=== PATIENT | female | born 1935 | race Caucasian/White ===

== ENCOUNTER 2019-07-04 10:21 | Emergency (ER) | payer MEDICARE ==
[2019-07-04] MEDS: cloNIDine 0.1 MG Tab PO ONE (10:37)
[2019-07-04] MEDS: cloNIDine 0.1 MG Tab ONE (10:42)
--- NOTE | 2019-07-04 10:55 | EDM.PDOC ---
ED HPI GENERAL MEDICAL PROBLEM - General Chief Complaint: General Stated Complaint: FALL AT HOME Time Seen by Provider: 07/04/19 10:30 Source of Information: Reports: Patient History Limitations: Reports: No Limitations - History of Present Illness INITIAL COMMENTS - FREE TEXT/NARRATIVE: According to patient she was taking her coat off last evening and got entangled and fell and landed on her right shoulder. Since then she cannot move her right arm. Hurts all around the shoulder. No swelling or bruising around the shoulder.rates her pain at 8/10. No other injuries. Pt is on 4 blood pressure meds, and she has not taken them today mooning. Her BP is 210/90mmhg. Onset Date: 07/03/19 Location: Reports: Upper Extremity, Right Quality: Reports: Ache Severity: Moderate Improves with: Reports: None Worsens with: Reports: None Associated Symptoms: Denies: Confusion, Chest Pain, Cough, Diaphoresis, Fever/ Chills, Headaches, Nausea/Vomiting, Rash, Seizure, Shortness of Breath, Syncope , Weakness Right Posterior Shoulder Pain Score (Numeric/FACES): 8 - Related Data Allergies Allergy/AdvReac Type Severity Reaction Status Date / Time No Known Allergies Allergy Verified 07/04/19 10:52 Home Meds: Home Meds Diltiazem HCl [Dilt-XR] 120 mg PO DAILY 07/04/19 [History] Losartan [Cozaar] 50 mg PO DAILY 07/04/19 [History] Metoprolol Tartrate 50 mg PO BID 07/04/19 [History] hydroCHLOROthiazide [Hydrochlorothiazide] 25 mg PO BID 07/04/19 [History] ED ROS GENERAL - Review of Systems Review Of Systems: See Below Constitutional: Denies: Fever, Chills HEENT: Denies: Ear Pain, Rhinitis, Throat Pain, Vision Change Respiratory: Denies: Cough, Sputum Cardiovascular: Denies: Chest Pain, Lightheadedness Endocrine: Denies: Fatigue GI/Abdominal: Denies: Abdominal Pain, Constipation, Diarrhea, Nausea, Vomiting Musculoskeletal: Reports: Joint Pain, Muscle Pain. Denies: Joint Swelling, Muscle Stiffness Skin: Denies: Bruising, Pruritis, Rash, Wound Neurological: Denies: Confusion, Dizziness, Headache, Numbness, Tingling ED EXAM, GENERAL - Physical Exam Exam: See Below Exam Limited By: No Limitations General Appearance: Alert, WD/WN, No Apparent Distress Eye Exam: Bilateral Eye: EOMI, PERRL Ears: Normal External Exam, Normal Canal, Hearing Grossly Normal, Normal TMs Ear Exam: Bilateral Ear: Auricle Normal, Canal Normal, TM normal Nose: Normal Inspection, Normal Mucosa, No Blood Throat/Mouth: Normal Inspection, Normal Lips, Normal Teeth, Normal Gums, Normal Oropharynx, Normal Voice, No Airway Compromise Head: Atraumatic, Normocephalic Neck: Normal Inspection, Supple, Non-Tender, Full Range of Motion Respiratory/Chest: No Respiratory Distress, Lungs Clear, Normal Breath Sounds, No Accessory Muscle Use, Chest Non-Tender Cardiovascular: Normal Peripheral Pulses, Regular Rate, Rhythm, No Edema, No Gallop, No JVD, No Murmur, No Rub Extremities: Normal Inspection, Normal Capillary Refill, Other (Right Shoulder: There is no swelling , bruising or defomrity noted around the shoulder. Painful and limited ROM.Tender over the distal clavicle. No crepitus felt in the humerus or around the shoulder joint.) Neurological: Alert, Oriented Skin Exam: Warm, Intact Course - Vital Signs Text/Narrative:: Pt's X-ray right shoulder appear normal other then the distal clavicular fracture undisplaced.Pt reassured that she has undisplaced fracture of the clavicle from the fall. Pt has been placed in Arm sling. Advised sling for 6 wks. Tylenol 500mg 3 times daily for pain as needed. Her BP on arrival was 210/94mmhg, she did take her meds and also clonidine 0.1mg was given in the emergency room. Her Blood pressure is now 154/79mmhg. Pt feeling better. Followup in clinic in 2 wks for recheck. Last Recorded V/S: Last Vital Signs Temp 98.0 F 07/04/19 10:53 Pulse 69 07/04/19 10:53 Resp 16 07/04/19 10:53 BP 220/98 H 07/04/19 10:53 Pulse Ox 100 07/04/19 10:53 - Orders/Labs/Meds Orders: Active Orders 24 hr Category Date Time Status Shoulder Comp Rt [CR] Stat Exams 07/04/19 10:47 Ordered Meds: Medications Discontinued Medications Generic Name Dose Route Start Last Admin Trade Name Freq PRN Reason Stop Dose Admin Clonidine HCl 0.1 mg 10/16/19 10:37 07/04/19 10:37 Catapres PO 07/04/19 10:38 0.1 mg ONETIME ONE Administration Clonidine HCl Confirm 07/04/19 10:45 07/04/19 10:42 Catapres Administered 07/04/19 10:46 Not Given Dose 0.1 mg .ROUTE .STK-MED ONE Departure - Departure Time of Disposition: 11:45 Disposition: Home, Self-Care 01 Condition: Fair Clinical Impression: Clavicle fracture - Discharge Information *PRESCRIPTION DRUG MONITORING PROGRAM REVIEWED*: Not Applicable *COPY OF PRESCRIPTION DRUG MONITORING REPORT IN PATIENT CHELSEY: Not Applicable Referrals: PCP,None [Primary Care Provider] - Forms: ED Department Discharge - Problem List & Annotations (1) Clavicle fracture SNOMED Code(s): 97526155 Code(s): S42.009A - FRACTURE OF UNSP PART OF UNSP CLAVICLE, INIT FOR CLOS FX Status: Acute Current Visit: Yes - Problem List Review Problem List Initiated/Reviewed/Updated: Yes - My Orders Last 24 Hours: My Active Orders 07/04/19 10:47 Shoulder Comp Rt [CR] Stat - Assessment/Plan Last 24 Hours: My Active Orders 07/04/19 10:47 Shoulder Comp Rt [CR] Stat Assessment:: Left clavicular fracture Plan: Pt's X-ray right shoulder appear normal other then the distal clavicular fracture undisplaced.Pt reassured that she has undisplaced fracture of the clavicle from the fall. Pt has been placed in Arm sling. Advised sling for 6 wks. Tylenol 500mg 3 times daily for pain as needed. Her BP on arrival was 210/94mmhg, she did take her meds and also clonidine 0.1mg was given in the emergency room. Her Blood pressure is now 154/79mmhg. Pt feeling better. Followup in clinic in 2 wks for recheck.
[2019-07-04 13:48] VITALS: BP 154/79; PULSE 55
--- NOTE | 2019-07-04 15:52 | CR ---
Date of Service: 07/04/19 Clinical Data: right shoulder pain RIGHT SHOULDER: There is diffuse osteopenia. There is a mildly displaced oblique fracture through the distal clavicle. No other fractures. 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 No focal lytic or blastic bone lesions. IMPRESSION: Fracture distal clavicle. [id number] [facility]
== END 2019-07-04 12:05 | disposition home or self-care (01) ==
LOC: LB.ED 10:21
DX: S42.031A Displaced fracture of lateral end of right clavicle, initial encounter for closed fracture (principal); Z79.899 Other long term (current) drug therapy; W18.30XA Fall on same level, unspecified, initial encounter; Y92.009 Unspecified place in unspecified non-institutional (private) residence as the place of occurrence of the external cause
CPT/HCPCS: 73030-RT; 99283-25; A9270-GY

== ENCOUNTER 2019-07-18 08:44 | Observation (INO) | payer MEDICARE, OTHER ==
[2019-07-18] MEDS: Acetaminophen 500 MG Tab PO PRN ×3 (10:45→23:29)
--- NOTE | 2019-07-18 11:49 | PCM.HP.2 ---
H&P History of Present Illness - General Date of Service: 07/18/19 Admit Problem/Dx: Admission Diagnosis/Problem Admission Diagnosis/Problem Fracture of phalanx of multiple toes Source of Information: Patient History Limitations: Reports: No Limitations - History of Present Illness Initial Comments - Free Text/Narative: This is a 84yo F admitted to observation from clinic for a fracture of the distal right clavicle on Jul 04 and new recent fall and fracture of the right distal 2-5 metatarsals. She is unable to care for herself and a fall risk. Onset of Symptoms: Reports: Sudden Duration of Symptoms: Reports: Day(s): Location: Reports: Upper Extremity, Right, Lower Extremity, Right Severity: Moderate Improves with: Reports: None Worsens with: Reports: Movement Associated Symptoms: Reports: Weakness - Related Data Allergies/Adverse Reactions: Allergies Allergy/AdvReac Type Severity Reaction Status Date / Time No Known Allergies Allergy Verified 07/18/19 11:32 Home Medications: Home Meds Diltiazem HCl [Dilt-XR] 120 mg PO DAILY 07/04/19 [History] Losartan [Cozaar] 50 mg PO BID 07/04/19 [History] Metoprolol Tartrate 50 mg PO BID 07/04/19 [History] hydroCHLOROthiazide [Hydrochlorothiazide] 25 mg PO BID 07/04/19 [History] Past Medical History HEENT History: Reports: Cataract, Other (See Below) Cardiovascular History: Reports: High Cholesterol, Hypertension Gastrointestinal History: Reports: Other (See Below) Other Gastrointestinal History: Hx of neurofibromatosis [employer] History: Reports: Neurological History: Reports: None Dermatologic History: Reports: Other (See Below) Other Dermatologic History: Hx of neurofibromatosis - Infectious Disease History Infectious Disease History: Reports: Chicken Pox, Measles, Mumps, Scarlet Fever - Past Surgical History HEENT Surgical History: Reports: Cataract Surgery GI Surgical History: Reports: Other (See Below) Other GI Surgeries/Procedures: Removal of some parts of the colon more than 20 years ago due to presence of tumor Female Surgical History: Reports: Section, Hysterectomy H&P Review of Systems - Review of Systems: Review Of Systems: ROS reveals no pertinent complaints other than HPI. Exam - Exam Exam: See Below - Exam General: Alert, Oriented, Cooperative HEENT: PERRLA, Conjunctiva Clear, EACs Clear Neck: Supple, Trachea Midline Lungs: Clear to Auscultation, Normal Respiratory Effort Cardiovascular: Regular Rate, Regular Rhythm GI/Abdominal Exam: Normal Bowel Sounds, Soft, Non-Tender Back Exam: Normal Inspection Extremities: Pedal Edema, Joint Swelling Peripheral Pulses: 2+: Dorsalis Pedis (L), Dorsalis Pedis (R) Skin: Warm, Dry, Intact Neuro Extensive - Mental Status: Alert, Oriented x3, Normal Mood/Affect - Problem List (1) Fracture of fifth metatarsal bone of right foot SNOMED Code(s): 530736511 ICD Code: S92.351A - DISP FX OF FIFTH METATARSAL BONE, RIGHT FOOT, INIT Status: Acute Current Visit: Yes Qualifiers: Encounter type: initial encounter Fracture type: closed Fracture alignment: nondisplaced Qualified Code(s): S92.354A - Nondisplaced fracture of fifth metatarsal bone, right foot, initial encounter for closed fracture (2) Fracture of fourth metatarsal bone of right foot SNOMED Code(s): 702225621 ICD Code: S92.341A - DISP FX OF FOURTH METATARSAL BONE, RIGHT FOOT, INIT Status: Acute Priority: High Current Visit: Yes Qualifiers: Encounter type: initial encounter Fracture type: closed Fracture alignment: nondisplaced Qualified Code(s): S92.344A - Nondisplaced fracture of fourth metatarsal bone, right foot, initial encounter for closed fracture (3) Fracture of second metatarsal bone of right foot SNOMED Code(s): 935805954 ICD Code: S92.321A - DISP FX OF SECOND METATARSAL BONE, RIGHT FOOT, INIT Status: Acute Priority: High Current Visit: Yes Qualifiers: Encounter type: initial encounter Fracture type: closed Fracture alignment: nondisplaced Qualified Code(s): S92.324A - Nondisplaced fracture of second metatarsal bone, right foot, initial encounter for closed fracture (4) Fracture of third metatarsal bone of right foot SNOMED Code(s): 081371084 ICD Code: S92.331A - DISP FX OF THIRD METATARSAL BONE, RIGHT FOOT, INIT Status: Acute Priority: High Current Visit: Yes Qualifiers: Encounter type: initial encounter Fracture type: closed Fracture alignment: nondisplaced Qualified Code(s): S92.334A - Nondisplaced fracture of third metatarsal bone, right foot, initial encounter for closed fracture (5) Clavicle fracture SNOMED Code(s): 58124741 ICD Code: S42.009A - FRACTURE OF UNSP PART OF UNSP CLAVICLE, INIT FOR CLOS FX Status: Acute Priority: High Current Visit: Yes Qualifiers: Encounter type: subsequent encounter Clavicle location: shaft Fracture type: closed Fracture alignment: displaced Laterality: right Problem List Initiated/Reviewed/Updated: Yes Orders Last 24hrs: Active Orders 24 hr Category Date Time Status Patient Status [ADT] Routine ADT 07/18/19 10:29 Active Up With Assistance [RC] ASDIRECTED Care 07/18/19 10:40 Active Vital Signs [RC] Q4H Care 07/18/19 10:40 Active OT Evaluation and Treatment [CONS] Routine Cons 07/18/19 10:35 Active PT Evaluation and Treatment [CONS] Routine Cons 07/18/19 10:34 Active Regular Diet [DIET] Diet 07/18/19 Lunch Ordered Foot 2V Rt [CR] Routine Exams 07/18/19 Taken Assessment/Plan Comment:: Patient to be placed in observation for pain management, monitoring and care of weakness and fall risk. PT/OT ordered.
[2019-07-18] MEDS: cloNIDine 0.1 MG Tab PO SCH ×2 (13:00→19:49)
--- NOTE | 2019-07-18 14:49 | CR ---
Date of Service: 07/18/19 Clinical Data: Pain in right foot RIGHT FOOT: There are mild displaced fractures through the distal diaphyses of the second, third, fourth, and fifth metatarsals with lateral angulation and displacement of the distal distal fragments. No other acute abnormalities. There is marked bunion deformity of the MP joint of the first toe. There are osteoarthritric changes involving multiple joints. [id number] MTDD
[2019-07-18] MEDS: Losartan 50 MG Tab PO SCH (19:42)
[2019-07-18] MEDS: Metoprolol Tartrate 50 MG Tab PO SCH (19:43)
[2019-07-18] MEDS ORDERED: Hydrochlorothiazide 25 MG Tab PO SCH (20:00)
[2019-07-18] MEDS ORDERED: Losartan 50 MG Tab PO SCH (20:00)
[2019-07-18] MEDS ORDERED: Metoprolol Tartrate 50 MG Tab PO SCH (20:00)
[2019-07-19] MEDS: traMADol 50 MG Tab PO PRN ×2 (05:26→21:05)
[2019-07-19] MEDS: Diltiazem 120 MG Cap.CD PO SCH (07:35)
[2019-07-19] MEDS: Hydrochlorothiazide 25 MG Tab PO SCH (07:35)
[2019-07-19] MEDS: Losartan 50 MG Tab PO SCH ×2 (07:38→19:44)
[2019-07-19] MEDS: cloNIDine 0.1 MG Tab PO SCH ×2 (07:38→19:43)
[2019-07-19] MEDS: Acetaminophen 500 MG Tab PO PRN ×2 (07:42→19:44)
[2019-07-19] MEDS ORDERED: Non-Formulary Medication 1 Each (Diltiazem Hcl [Dilt-Xr] 120 MG) PO SCH (08:00)
[2019-07-19] MEDS: Metoprolol Tartrate 25 MG Tab PO SCH ×2 (09:00→19:43)
--- NOTE | 2019-07-19 11:52 | PCM.PN ---
- General Info Date of Service: 07/19/19 (]) Functional Status: Reports: Pain Controlled, Tolerating Diet - Review of Systems General: Reports: Weakness HEENT: Reports: No Symptoms Pulmonary: Reports: No Symptoms Cardiovascular: Reports: No Symptoms Gastrointestinal: Reports: No Symptoms Genitourinary: Reports: No Symptoms Musculoskeletal: Reports: Shoulder Pain, Arm Pain, Foot Pain, Joint Pain Skin: Reports: No Symptoms Neurological: Reports: No Symptoms - Patient Data Vitals - Most Recent: Last Vital Signs Temp 36.2 C 07/19/19 07:40 Pulse 52 L 07/19/19 07:40 Resp 18 07/19/19 07:40 BP 182/75 H 07/19/19 07:40 Pulse Ox 96 07/19/19 07:40 Weight - Most Recent: 63.957 kg Med Orders - Current: Current Medications Acetaminophen (Tylenol Extra Strength) 1,000 mg PO Q6H PRN PRN Reason: MILD PAIN Last Admin: 07/19/19 07:42 Dose: 1,000 mg Clonidine HCl (Catapres) 0.1 mg PO BID [facility] Last Admin: 07/19/19 07:38 Dose: 0.1 mg Diltiazem HCl (Cardizem Cd) 120 mg PO DAILY [facility] Last Admin: 07/19/19 07:35 Dose: 120 mg Hydrochlorothiazide (Hydrochlorothiazide) 25 mg PO DAILY [facility] Last Admin: 07/19/19 07:35 Dose: 25 mg Losartan Potassium (Cozaar) 50 mg PO BID [facility] Last Admin: 07/19/19 07:38 Dose: 50 mg Metoprolol Tartrate (Lopressor) 25 mg PO BID [facility] Tramadol HCl (Ultram) 25 mg PO Q4H PRN PRN Reason: Pain Last Admin: 07/19/19 05:26 Dose: 25 mg Discontinued Medications Metoprolol Tartrate (Lopressor) 100 mg PO BID [facility] Last Admin: 07/18/19 19:43 Dose: 100 mg - Exam General: Alert, Oriented, Cooperative HEENT: Pupils Equal, Pupils Reactive, EOMI Neck: Supple Lungs: Clear to Auscultation, Normal Respiratory Effort Cardiovascular: Regular Rate, Regular Rhythm GI/Abdominal Exam: Normal Bowel Sounds Back Exam: Normal Inspection Extremities: Other (foot pain and tenderness, clavicle tenderness - both on right) Peripheral Pulses: 2+: Dorsalis Pedis (L), Dorsalis Pedis (R) Skin: Warm, Dry, Intact Neurological: No New Focal Deficit Psy/Mental Status: Alert, Normal Affect, Normal Mood - Problem List & Annotations (1) Fracture of fifth metatarsal bone of right foot SNOMED Code(s): 721750944 Code(s): S92.351A - DISP FX OF FIFTH METATARSAL BONE, RIGHT FOOT, INIT Status: Acute Current Visit: Yes Qualifiers: Encounter type: initial encounter Fracture type: closed Fracture alignment: nondisplaced Qualified Code(s): S92.354A - Nondisplaced fracture of fifth metatarsal bone, right foot, initial encounter for closed fracture (2) Fracture of fourth metatarsal bone of right foot SNOMED Code(s): 156583559 Code(s): S92.341A - DISP FX OF FOURTH METATARSAL BONE, RIGHT FOOT, INIT Status: Acute Priority: High Current Visit: Yes Qualifiers: Encounter type: initial encounter Fracture type: closed Fracture alignment: nondisplaced Qualified Code(s): S92.344A - Nondisplaced fracture of fourth metatarsal bone, right foot, initial encounter for closed fracture (3) Fracture of second metatarsal bone of right foot SNOMED Code(s): 616801938 Code(s): S92.321A - DISP FX OF SECOND METATARSAL BONE, RIGHT FOOT, INIT Status: Acute Priority: High Current Visit: Yes Qualifiers: Encounter type: initial encounter Fracture type: closed Fracture alignment: nondisplaced Qualified Code(s): S92.324A - Nondisplaced fracture of second metatarsal bone, right foot, initial encounter for closed fracture (4) Fracture of third metatarsal bone of right foot SNOMED Code(s): 239068396 Code(s): S92.331A - DISP FX OF THIRD METATARSAL BONE, RIGHT FOOT, INIT Status: Acute Priority: High Current Visit: Yes Qualifiers: Encounter type: initial encounter Fracture type: closed Fracture alignment: nondisplaced Qualified Code(s): S92.334A - Nondisplaced fracture of third metatarsal bone, right foot, initial encounter for closed fracture (5) Clavicle fracture SNOMED Code(s): 63759576 Code(s): S42.009A - FRACTURE OF UNSP PART OF UNSP CLAVICLE, INIT FOR CLOS FX Status: Acute Priority: High Current Visit: Yes Qualifiers: Encounter type: subsequent encounter Clavicle location: shaft Fracture type: closed Fracture alignment: displaced Laterality: right - Problem List Review Problem List Initiated/Reviewed/Updated: Yes - My Orders Last 24 Hours: My Active Orders 07/18/19 12:15 cloNIDine [Catapres] 0.1 mg PO BID 07/18/19 17:01 CULTURE MRSA SURVEY [RM] Routine 07/18/19 17:14 Acetaminophen [Tylenol Extra Strength] 1,000 mg PO Q6H PRN 07/18/19 19:01 Weight bearing status [OM.PC] Routine 07/18/19 20:00 Losartan [Cozaar] 50 mg PO BID 07/18/19 Lunch Regular Diet [DIET] 07/19/19 05:00 traMADol [Ultram] 25 mg PO Q4H PRN 07/19/19 08:00 Diltiazem [Cardizem CD] 120 mg PO DAILY hydroCHLOROthiazide 25 mg PO DAILY 07/19/19 08:15 Metoprolol Tartrate [Lopressor] 25 mg PO BID - Plan Plan:: Patient to be placed in observation for pain management, monitoring and care of weakness and fall risk. PT/OT ordered. 07/19/19 Patient doing well and will start with some PT/OT evaluation and management.
[2019-07-19] MEDS: Metoprolol Tartrate 50 MG Tab PO SCH (18:48)
[2019-07-20] MEDS: Acetaminophen 500 MG Tab PO PRN (04:31)
[2019-07-20 04:44] VITALS: PULSE 52
[2019-07-20] MEDS: Metoprolol Tartrate 25 MG Tab PO SCH (07:42)
[2019-07-20] MEDS: Diltiazem 120 MG Cap.CD PO SCH (07:43)
[2019-07-20] MEDS: Losartan 50 MG Tab PO SCH (07:43)
[2019-07-20] MEDS: Hydrochlorothiazide 25 MG Tab PO SCH (07:43)
[2019-07-20 07:44] VITALS: BP 159/70
[2019-07-20] MEDS: cloNIDine 0.1 MG Tab PO SCH (07:44)
--- NOTE | 2019-07-20 11:46 | PCM.DCSUM1 ---
Discharge Summary - Discharge Data Discharge Date: 07/20/19 Discharge Disposition: DC/[facility] to [facility] Condition: Good - Referral to Home Health Primary Care Physician: PCP None - Discharge Diagnosis/Problem(s) (1) Fracture of fifth metatarsal bone of right foot SNOMED Code(s): 606841731 ICD Code: S92.351A - DISP FX OF FIFTH METATARSAL BONE, RIGHT FOOT, INIT Status: Acute Current Visit: Yes Qualifiers: Encounter type: initial encounter Fracture type: closed Fracture alignment: nondisplaced Qualified Code(s): S92.354A - Nondisplaced fracture of fifth metatarsal bone, right foot, initial encounter for closed fracture (2) Fracture of fourth metatarsal bone of right foot SNOMED Code(s): 052854672 ICD Code: S92.341A - DISP FX OF FOURTH METATARSAL BONE, RIGHT FOOT, INIT Status: Acute Priority: High Current Visit: Yes Qualifiers: Encounter type: initial encounter Fracture type: closed Fracture alignment: nondisplaced Qualified Code(s): S92.344A - Nondisplaced fracture of fourth metatarsal bone, right foot, initial encounter for closed fracture (3) Fracture of second metatarsal bone of right foot SNOMED Code(s): 563198571 ICD Code: S92.321A - DISP FX OF SECOND METATARSAL BONE, RIGHT FOOT, INIT Status: Acute Priority: High Current Visit: Yes Qualifiers: Encounter type: initial encounter Fracture type: closed Fracture alignment: nondisplaced Qualified Code(s): S92.324A - Nondisplaced fracture of second metatarsal bone, right foot, initial encounter for closed fracture (4) Fracture of third metatarsal bone of right foot SNOMED Code(s): 821601889 ICD Code: S92.331A - DISP FX OF THIRD METATARSAL BONE, RIGHT FOOT, INIT Status: Acute Priority: High Current Visit: Yes Qualifiers: Encounter type: initial encounter Fracture type: closed Fracture alignment: nondisplaced Qualified Code(s): S92.334A - Nondisplaced fracture of third metatarsal bone, right foot, initial encounter for closed fracture (5) Clavicle fracture SNOMED Code(s): 75032328 ICD Code: S42.009A - FRACTURE OF UNSP PART OF UNSP CLAVICLE, INIT FOR CLOS FX Status: Acute Priority: High Current Visit: Yes Qualifiers: Encounter type: subsequent encounter Clavicle location: shaft Fracture type: closed Fracture alignment: displaced Laterality: right - Patient Summary/Data Consults: Consultations 07/18/19 10:34 PT Evaluation and Treatment [CONS] Routine Please Evaluate and Treat. PT Reason for Consult: Ambulation This query below is only for informational purposes and is not editable. Admission Diagnosis/Problem: Fracture of phalanx of multiple toes 07/18/19 10:35 OT Evaluation and Treatment [CONS] Routine Please Evaluate and Treat. OT Reason for Consult: Discharge Planning This query below is only for informational purposes and is not editable. Admission Diagnosis/Problem: Fracture of phalanx of multiple toes - Discharge Plan Home Medications: Home Meds Diltiazem HCl [Dilt-XR] 120 mg PO DAILY 07/04/19 [History] Losartan [Cozaar] 50 mg PO BID 07/04/19 [History] Metoprolol Tartrate 50 mg PO BID 07/04/19 [History] hydroCHLOROthiazide [Hydrochlorothiazide] 25 mg PO BID 07/04/19 [History] - Discharge Summary/Plan Comment DC Time >30 min.: No Discharge Summary/Plan Comment: Patient to be discharged to Care center for care and management. Patient unable to be independent and is not safe at home. We will continue PT/OT and f/u management as needed. - Patient Data Vitals - Most Recent: Last Vital Signs Temp 36.2 C 07/20/19 07:53 Pulse 52 L 07/20/19 07:53 Resp 18 07/20/19 07:53 BP 159/70 H 07/20/19 07:53 Pulse Ox 94 L 07/20/19 07:53 Weight - Most Recent: 63.957 kg Lab Results - Last 24 hrs: Laboratory Results - last 24 hr 07/20/19 07/20/19 Range/Units 09:50 09:50 WBC 10.4 D (4.0-11.0) K/uL RBC 4.65 (3.80-5.80) M/uL Hgb 12.8 (11.5-16.5) g/dL Hct 38.9 (37.0-47.0) % MCV 84 (76-96) fL MCH 27.5 (27.0-32.0) pg MCHC 32.9 (31.0-35.0) g/dL RDW 14.3 (11.0-16.0) % Plt Count 325 (150-500) K/uL MPV 10.5 H (6.0-10.0) fL Neut % (Auto) 71.5 H (45.0-70.0) % Lymph % (Auto) 14.9 L (20.0-40.0) % [place] % (Auto) 11.3 H (3.0-10.0) % Eos % (Auto) 2.0 (1.0-5.0) % Baso % (Auto) 0.3 (0.0-0.5) % Neut # (Auto) 7.42 (2.00-7.50) K/uL Lymph # (Auto) 1.54 (1.50-4.00) K/uL [place] # (Auto) 1.17 H (0.20-0.80) K/uL Eos # (Auto) 0.21 (0.04-0.40) K/uL Baso # (Auto) 0.03 (0.02-0.10) K/uL Sodium 136 (136-145) mmol/L Potassium 4.3 (3.5-5.1) mmol/L Chloride 100 (98-107) mmol/L Carbon Dioxide 25.5 (21.0-32.0) mmol/L Anion Gap 14.8 (5.0-15.0) mmol/L BUN 23 D (8-26) mg/dL Creatinine 1.32 H (0.55-1.02) mg/dL Est Cr Clr Drug Dosing 23.60 mL/min Estimated GFR (MDRD) 39 L (>60) MLS/MIN BUN/Creatinine Ratio 17.4 (6-25) Glucose 162 H D (74-100) mg/dL Calcium 8.9 (8.5-10.1) mg/dL Total Bilirubin 0.4 (0.0-1.0) mg/dL AST 23 (15-37) U/L ALT 25 (12-78) U/L Alkaline Phosphatase 94 (46-116) U/L Total Protein 7.2 (6.4-8.2) g/dL Albumin 3.4 (3.4-5.0) g/dL Globulin 3.8 (2.2-4.2) g/dL Albumin/Globulin Ratio 0.9 (0.8-2.0) TSH, Ultra Sensitive 5.393 H (0.358-3.740) uIU/mL GARCIA Results - Last 24 hrs: Microbiology 07/18/19 17:01 MRSA Surveillance Culture - Final Nares, Unspecified NO MRSA ISOLATED Med Orders - Current: Current Medications Acetaminophen (Tylenol Extra Strength) 1,000 mg PO Q6H PRN PRN Reason: MILD PAIN Last Admin: 07/20/19 04:31 Dose: 1,000 mg Clonidine HCl (Catapres) 0.1 mg PO BID [facility] Last Admin: 07/20/19 07:44 Dose: 0.1 mg Diltiazem HCl (Cardizem Cd) 120 mg PO DAILY [facility] [place] Last Admin: 07/20/19 07:43 Dose: 120 mg Hydrochlorothiazide (Hydrochlorothiazide) 25 mg PO DAILY [facility] [place] Last Admin: 07/20/19 07:43 Dose: 25 mg Losartan Potassium (Cozaar) 50 mg PO BID [facility] [place] Last Admin: 07/20/19 07:43 Dose: 50 mg Metoprolol Tartrate (Lopressor) 25 mg PO BID [facility] [place] Last Admin: 07/20/19 07:42 Dose: 25 mg Tramadol HCl (Ultram) 25 mg PO Q4H PRN PRN Reason: Pain Last Admin: 07/19/19 21:05 Dose: 25 mg Discontinued Medications Metoprolol Tartrate (Lopressor) 100 mg PO BID [facility] [place] Last Admin: 07/19/19 18:48 Dose: Not Given
== END 2019-07-20 12:45 ==
LOC: LB.CLINIC 08:44 → LB.MS 10:29
PROVIDERS: ADMIT Family Medicine; ATTEND Family Medicine
DX: S92.351A Displaced fracture of fifth metatarsal bone, right foot, initial encounter for closed fracture (principal); S92.341A Displaced fracture of fourth metatarsal bone, right foot, initial encounter for closed fracture; S92.321A Displaced fracture of second metatarsal bone, right foot, initial encounter for closed fracture; S92.331A Displaced fracture of third metatarsal bone, right foot, initial encounter for closed fracture; S42.009A Fracture of unspecified part of unspecified clavicle, initial encounter for closed fracture; I10 Essential (primary) hypertension; E78.00 Pure hypercholesterolemia, unspecified; W19.XXXA Unspecified fall, initial encounter; Z91.81 History of falling; Z79.899 Other long term (current) drug therapy
CPT/HCPCS: 36415; 73620-RT; 80053; 84443; 85025; 97165-GO; 97530-GO; A9270-GY; G0378

== ENCOUNTER → 2019-08-06 | Outpatient (CLI) | payer MEDICARE, OTHER | LOC: LB.CC 10:00 | PROVIDERS: ATTEND Family Medicine | DX: Z51.81 Encounter for therapeutic drug level monitoring (principal); Z79.899 Other long term (current) drug therapy | CPT/HCPCS: 36415; 84132 ==

== ENCOUNTER 2023-10-12 10:41 | Emergency (ER) | payer MEDICARE ==
[2023-10-12 11:02] LABS: BASOPHILS ABSOLUTE AUTO 0.03 K/uL (0.02-0.10); BASOPHILS PERCENT AUTO 0.3 % (0.0-0.5); EOSINOPHILS ABSOLUTE AUTO 0.19 K/uL (0.04-0.40); EOSINOPHILS PERCENT AUTO 1.7 % (1.0-5.0); HEMATOCRIT 39.8 % (37.0-47.0); HEMOGLOBIN 14.4 g/dL (11.5-16.5); LYMPHOCYTES ABSOLUTE AUTO 2.39 K/uL (1.50-4.00); LYMPHOCYTES PERCENT AUTO 21.6 % (20.0-40.0); MEAN CORPUSCULAR HEMOGLOBIN 27.3 pg (27.0-32.0); MEAN CORPUSCULAR HGB CONC 36.2 g/dL (31.0-35.0); MEAN CORPUSCULAR VOLUME 75 fL (76-96); MEAN PLATELET VOLUME 10.2 fL (6.0-10.0); MONOCYTES ABSOLUTE AUTO 1.18 K/uL (0.20-0.80); MONOCYTES PERCENT AUTO 10.7 % (3.0-10.0); NEUTROPHILS ABSOLUTE AUTO 7.27 K/uL (2.00-7.50); NEUTROPHILS PERCENT AUTO 65.7 % (45.0-70.0); PLATELET COUNT,PLT 292 K/uL (150-500); RED BLOOD CELL COUNT 5.28 M/uL (3.80-5.80); RED CELL DISTRIBUTION WIDTH 13.9 % (11.0-16.0); WHITE BLOOD CELL COUNT,WBC 11.1 K/uL (4.0-11.0)
[2023-10-12] MEDS: Labetalol 100 MG/20 ML MDV IVPUSH ONE (11:03)
[2023-10-12 11:18] LABS: A/G RATIO 0.7 (0.8-2.0); ALBUMIN 3.6 g/dL (3.4-5.0); ANION GAP 15.5 mmol/L (5.0-15.0); BILIRUBIN TOTAL 0.7 mg/dL (0.0-1.0); BUN/CREATININE RATIO 18.4 (6-25); CALCIUM 9.4 mg/dL (8.5-10.1); CARBON DIOXIDE,CO2 25.7 mmol/L (21.0-32.0); CREATININE 1.36 mg/dL (0.55-1.02); EST CRCL DRUG DOSING (CG) 21.33 mL/min; POTASSIUM,K 4.2 mmol/L (3.5-5.1); PROTEIN TOTAL,TP 8.7 g/dL (6.4-8.2)
[2023-10-12] MEDS: Labetalol 100 MG in Sodium Chloride 0.9% 80 ML IV SCH (12:07)
[2023-10-12] MEDS: Labetalol 100 MG/20 ML MDV ONE (12:10)
[2023-10-12] MEDS ORDERED: Sodium Chloride 0.9% 10 ML Syringe FLUSH PRN (12:15)
[2023-10-12] MEDS: Metoprolol Tartrate 50 MG Tab PO ONE (12:56)
[2023-10-12] MEDS: Metoprolol Tartrate 50 MG Tab ONE (15:09)
[2023-10-12 15:15] VITALS: BP 163/69; PULSE 49
== END 2023-10-12 13:22 | disposition home or self-care (01) ==
LOC: LB.ED 10:41
DX: G51.0 Bell's palsy (principal); I10 Essential (primary) hypertension; E78.00 Pure hypercholesterolemia, unspecified; E66.9 Obesity, unspecified; Z79.899 Other long term (current) drug therapy; Z88.8 Allergy status to other drugs, medicaments and biological substances; Z68.35 Body mass index [BMI] 35.0-35.9, adult
CPT/HCPCS: 36415; 51702; 70450; 80053; 84484; 85025; 85610; 85730; 93005; 93010; 96365; 96376; 99284; 99284-25; A9270-GY; J1921; J3490

== ENCOUNTER 2024-10-29 04:10 | Emergency (ER) | payer MEDICARE ==
[2024-10-29 05:21] LABS: APPEARANCE,URINE CLOUDY (CLEAR); BILIRUBIN,URINE SMALL (NEGATIVE); COLOR,URINE YELLOW; GLUCOSE,URINE NEGATIVE (NEGATIVE); KETONES,URINE 15 mg/dL (NEGATIVE); LEUKOCYTE ESTERASE,URINE TRACE (NEGATIVE); NITRITE,URINE NEGATIVE (NEGATIVE); OCCULT BLOOD,URINE NEGATIVE (NEGATIVE); PROTEIN,URINE 100 mg/dL (NEGATIVE); RBC,URINE NOT SEEN /HPF; SQUAMOUS EPITHELIAL CELLS,UR FEW /HPF; UROBILINOGEN,URINE 0.2 E.U./dL (0.2-1.0)
[2024-10-29 05:22] LABS: AMORPHOUS SEDIMENT,URINE MANY /HPF; BACTERIA,URINE MODERATE /HPF
[2024-10-29] MEDS ORDERED: Sulfamethoxazole/Trimethoprim 800-160 MG Tab ONE (07:30)
[2024-10-29 08:10] VITALS: BP 204/87; PULSE 64
== END 2024-10-29 07:45 | disposition home or self-care (01) ==
LOC: LB.ED 04:10
DX: N30.00 Acute cystitis without hematuria (principal); I10 Essential (primary) hypertension; E78.00 Pure hypercholesterolemia, unspecified; Z88.8 Allergy status to other drugs, medicaments and biological substances; Z79.899 Other long term (current) drug therapy
CPT/HCPCS: 81001; 99283; A0425; A0429; A9270; C1758

== ENCOUNTER 2024-11-02 21:27 | Inpatient (IN) | payer MEDICARE ==
[2024-11-02] MEDS: Labetalol 100 MG/20 ML MDV IVPUSH ONE (22:27)
[2024-11-02 22:51] LABS: BASOPHILS ABSOLUTE AUTO 0.03 K/uL (0.02-0.10); BASOPHILS PERCENT AUTO 0.2 % (0.0-0.5); EOSINOPHILS ABSOLUTE AUTO 0.06 K/uL (0.04-0.40); EOSINOPHILS PERCENT AUTO 0.4 % (1.0-5.0); HEMOGLOBIN 12.8 g/dL (11.5-16.5); LYMPHOCYTES ABSOLUTE AUTO 1.25 K/uL (1.50-4.00); LYMPHOCYTES PERCENT AUTO 8.5 % (20.0-40.0); MEAN CORPUSCULAR HEMOGLOBIN 27.6 pg (27.0-32.0); MEAN CORPUSCULAR HGB CONC 32.8 g/dL (31.0-35.0); MEAN CORPUSCULAR VOLUME 84 fL (76-96); MEAN PLATELET VOLUME 11.3 fL (6.0-10.0); MONOCYTES ABSOLUTE AUTO 1.29 K/uL (0.20-0.80); MONOCYTES PERCENT AUTO 8.8 % (3.0-10.0); NEUTROPHILS ABSOLUTE AUTO 12.04 K/uL (2.00-7.50); NEUTROPHILS PERCENT AUTO 82.1 % (45.0-70.0); PLATELET COUNT,PLT 282 K/uL (150-500); RED BLOOD CELL COUNT 4.64 M/uL (3.80-5.80); RED CELL DISTRIBUTION WIDTH 14.7 % (11.0-16.0); WHITE BLOOD CELL COUNT,WBC 14.7 K/uL (4.0-11.0)
[2024-11-02 23:16] LABS: A/G RATIO 0.7 (0.8-2.0); ALBUMIN 3.1 g/dL (3.4-5.0); ANION GAP 14.8 mmol/L (5.0-15.0); BILIRUBIN TOTAL 0.3 mg/dL (0.0-1.0); BUN/CREATININE RATIO 17.5 (6-25); CALCIUM 8.7 mg/dL (8.5-10.1); CARBON DIOXIDE,CO2 24.1 mmol/L (21.0-32.0); CREATININE 2.17 mg/dL (0.55-1.02); EST CRCL DRUG DOSING (CG) 15.11 mL/min; POTASSIUM,K 4.9 mmol/L (3.5-5.1); PROTEIN TOTAL,TP 7.8 g/dL (6.4-8.2)
[2024-11-03] MEDS: Sodium Chloride 0.9% 1,000 ML IV SCH (00:54)
[2024-11-03] MEDS: Nystatin Topical Powder 15 GM Bottle TOP SCH (02:10)
[2024-11-03] MEDS: Labetalol 100 MG/20 ML MDV IVPUSH ONE (02:10)
[2024-11-03 02:43] LABS: APPEARANCE,URINE CLOUDY (CLEAR); COLOR,URINE YELLOW; PH,URINE 6.5 (5.0-8.0); PROTEIN,URINE 100 mg/dL (NEGATIVE)
[2024-11-03 02:44] LABS: BILIRUBIN,URINE NEGATIVE (NEGATIVE); GLUCOSE,URINE NEGATIVE (NEGATIVE); KETONES,URINE NEGATIVE (NEGATIVE); LEUKOCYTE ESTERASE,URINE NEGATIVE (NEGATIVE); NITRITE,URINE NEGATIVE (NEGATIVE); OCCULT BLOOD,URINE NEGATIVE (NEGATIVE); UROBILINOGEN,URINE 0.2 E.U./dL (0.2-1.0)
[2024-11-03 02:45] LABS: RBC,URINE 0-5 /HPF; SQUAMOUS EPITHELIAL CELLS,UR OCCASIONAL /HPF; WBC,URINE 0-5 /HPF
[2024-11-03 02:54] LABS: LACTIC ACID 0.8 mmol/L (0.4-2.0)
[2024-11-03] MEDS: Labetalol 100 MG in Sodium Chloride 0.9% 80 ML IV SCH (03:04)
[2024-11-03] MEDS: Acetaminophen 500 MG Tab PO PRN (05:39)
[2024-11-03] MEDS: Pantoprazole 40 MG Tab.CR PO SCH (08:04)
[2024-11-03] MEDS: cloNIDine 0.1 MG Tab PO SCH ×2 (08:05→19:59)
[2024-11-03] MEDS: Losartan 50 MG Tab PO SCH (08:07)
[2024-11-03] MEDS: Multivitamin Tab PO SCH (08:07)
[2024-11-03] MEDS: Hydrochlorothiazide 25 MG Tab PO SCH (08:08)
[2024-11-03] MEDS: Metoprolol Tartrate 50 MG Tab PO SCH (08:08)
[2024-11-03] MEDS: Sodium Chloride 0.9% 10 ML Syringe FLUSH PRN (08:09)
[2024-11-03] MEDS: Diltiazem 120 MG Cap.CD PO SCH (08:11)
[2024-11-03 08:45] LABS: BASOPHILS ABSOLUTE AUTO 0.03 K/uL (0.02-0.10); BASOPHILS PERCENT AUTO 0.2 % (0.0-0.5); EOSINOPHILS ABSOLUTE AUTO 0.15 K/uL (0.04-0.40); EOSINOPHILS PERCENT AUTO 1.2 % (1.0-5.0); LYMPHOCYTES ABSOLUTE AUTO 2.29 K/uL (1.50-4.00); LYMPHOCYTES PERCENT AUTO 18.1 % (20.0-40.0); MEAN CORPUSCULAR HEMOGLOBIN 27.5 pg (27.0-32.0); MEAN CORPUSCULAR HGB CONC 32.5 g/dL (31.0-35.0); MEAN CORPUSCULAR VOLUME 85 fL (76-96); MEAN PLATELET VOLUME 11.5 fL (6.0-10.0); MONOCYTES ABSOLUTE AUTO 1.47 K/uL (0.20-0.80); MONOCYTES PERCENT AUTO 11.6 % (3.0-10.0); NEUTROPHILS ABSOLUTE AUTO 8.69 K/uL (2.00-7.50); NEUTROPHILS PERCENT AUTO 68.9 % (45.0-70.0); PLATELET COUNT,PLT 284 K/uL (150-500); RED BLOOD CELL COUNT 4.73 M/uL (3.80-5.80); RED CELL DISTRIBUTION WIDTH 14.9 % (11.0-16.0); WHITE BLOOD CELL COUNT,WBC 12.6 K/uL (4.0-11.0)
[2024-11-03] MEDS ORDERED: Sodium Chloride 0.9% 1,000 ML IV SCH (08:45)
[2024-11-03 09:26] LABS: ANION GAP 17.6 mmol/L (5.0-15.0); BUN/CREATININE RATIO 17.2 (6-25); CALCIUM 8.9 mg/dL (8.5-10.1); CARBON DIOXIDE,CO2 21.1 mmol/L (21.0-32.0); CREATININE 1.98 mg/dL (0.55-1.02); EST CRCL DRUG DOSING (CG) 14.38 mL/min; POTASSIUM,K 4.7 mmol/L (3.5-5.1)
[2024-11-03] MEDS ORDERED: Loperamide 2 MG Cap PO PRN (10:18)
[2024-11-03] MEDS: Sulfamethoxazole/Trimethoprim 800-160 MG Tab PO SCH (22:10)
[2024-11-04] MEDS: Diltiazem 240 MG Cap.ER PO SCH (07:35)
[2024-11-04] MEDS: hydrALAZINE 10 MG Tab PO SCH (09:34)
[2024-11-04 14:43] LABS: HEMOGLOBIN 12.2 g/dL (11.5-16.5); MEAN CORPUSCULAR HEMOGLOBIN 27.4 pg (27.0-32.0); MEAN CORPUSCULAR HGB CONC 32.1 g/dL (31.0-35.0); RED BLOOD CELL COUNT 4.45 M/uL (3.80-5.80); RED CELL DISTRIBUTION WIDTH 14.7 % (11.0-16.0); WHITE BLOOD CELL COUNT,WBC 12.7 K/uL (4.0-11.0)
[2024-11-04 15:02] LABS: ANION GAP 14.1 mmol/L (5.0-15.0); CALCIUM 8.6 mg/dL (8.5-10.1); CARBON DIOXIDE,CO2 24.2 mmol/L (21.0-32.0); CREATININE 1.69 mg/dL (0.55-1.02); EST CRCL DRUG DOSING (CG) 16.85 mL/min; POTASSIUM,K 4.3 mmol/L (3.5-5.1)
[2024-11-04] MEDS: Magnesium Sulfat/D5W 1GM/100ML 1 GM in Premix Bag 1 BAG IV ONE (18:15)
[2024-11-04] MEDS: Metoprolol Tartrate 25 MG Tab PO SCH (21:36)
[2024-11-05] MEDS: hydrALAZINE 10 MG Tab PO ONE (00:30)
[2024-11-05] MEDS: Magnesium Oxide 400 MG Tab PO SCH (14:58)
[2024-11-05] MEDS: hydrALAZINE 10 MG Tab PO SCH ×3 (14:58→19:40)
[2024-11-05] MEDS: Isosorbide Mononitrate 30 MG Tab.ER PO SCH (19:40)
[2024-11-05] MEDS: Metoprolol Tartrate 50 MG Tab PO SCH (19:43)
[2024-11-05] MEDS: hydrALAZINE 20 MG/ML SDV IVPUSH ONE (22:24)
[2024-11-05] MEDS: hydrALAZINE 20 MG/ML SDV ONE (22:33)
[2024-11-06] MEDS: Labetalol 100 MG/20 ML MDV IVPUSH ONE (06:18)
[2024-11-06 10:03] LABS: ANION GAP 14.1 mmol/L (5.0-15.0); BUN/CREATININE RATIO 16.3 (6-25); CALCIUM 8.7 mg/dL (8.5-10.1); CARBON DIOXIDE,CO2 25.1 mmol/L (21.0-32.0); CREATININE 1.53 mg/dL (0.55-1.02); EST CRCL DRUG DOSING (CG) 18.61 mL/min; POTASSIUM,K 4.2 mmol/L (3.5-5.1)
[2024-11-06] MEDS: amLODIPine 5 MG Tab PO SCH (10:12)
[2024-11-06] MEDS: Metoprolol Succinate 50 MG Tab.ER PO SCH (19:55)
[2024-11-07 14:09] VITALS: BP 182/77
[2024-11-07 14:17] VITALS: PULSE 70
== END 2024-11-07 13:36 | disposition swing bed (61) | DRG 305 ==
LOC: LB.ED 21:27 → LB.MS 23:15
PROVIDERS: ADMIT Surgery; ATTEND Surgery
DX: I16.0 Hypertensive urgency (principal); I10 Essential (primary) hypertension; N28.9 Disorder of kidney and ureter, unspecified; Z79.899 Other long term (current) drug therapy; R53.81 Other malaise; Z85.820 Personal history of malignant melanoma of skin; Z87.440 Personal history of urinary (tract) infections; Z98.891 History of uterine scar from previous surgery; Q85.00 Neurofibromatosis, unspecified; Z91.199 Patient's noncompliance with other medical treatment and regimen due to unspecified reason
CPT/HCPCS: 36415; 70450; 71045; 80053; 85025; 93005; A0425; A0428; C1758; U0002; 51701; 51702; 80048; 81001; 83605; 83735; 85027; 87040; 96374; 97110-GP; 97161-GP; 97165-GO; 97530-GP; 99222; 99232; 99285-25; A9270-GY; J0360; J1920; J3475

== ENCOUNTER 2024-11-07 13:29 | Inpatient (IN) | payer MEDICARE ==
[2024-11-07] MEDS ORDERED: Loperamide 2 MG Cap PO PRN (14:31)
[2024-11-07] MEDS: Heparin Sodium 5,000 Units/ML Vial SUBCUT SCH ×2 (19:42→20:44)
[2024-11-07] MEDS: Metoprolol Succinate 50 MG Tab.ER PO SCH (19:43)
[2024-11-07] MEDS: Losartan 50 MG Tab PO SCH (19:43)
[2024-11-07] MEDS: Acetaminophen 500 MG Tab PO PRN (19:43)
[2024-11-07] MEDS: hydrALAZINE 10 MG Tab PO SCH (19:43)
[2024-11-07] MEDS: Tuberculin, PPD 5 Units/0.1 ML 1 ML MDV IDERM ONE (19:45)
[2024-11-07] MEDS ORDERED: FOLIC PO SCH (20:00)
[2024-11-07] MEDS ORDERED: [UNRECOGNIZED DRUG - OTHER] PO SCH (20:00)
[2024-11-07] MEDS ORDERED: LYCOPEN PO SCH (20:00)
[2024-11-07] MEDS ORDERED: K1 PO SCH (20:00)
[2024-11-07] MEDS ORDERED: LUTEIN PO SCH (20:00)
[2024-11-07] MEDS ORDERED: MV MIN PO SCH (20:00)
[2024-11-08] MEDS: hydrALAZINE 10 MG Tab PO ONE (06:08)
[2024-11-08] MEDS: Diltiazem 240 MG Cap.ER PO SCH (07:53)
[2024-11-08] MEDS: Magnesium Oxide 400 MG Tab PO SCH (07:54)
[2024-11-08] MEDS: Multivitamin Tab PO SCH (07:54)
[2024-11-08] MEDS: amLODIPine 5 MG Tab PO SCH (07:54)
[2024-11-08] MEDS: Nystatin Topical Powder 15 GM Bottle TOP SCH (07:54)
[2024-11-08] MEDS: Pantoprazole 40 MG Tab.CR PO SCH (07:54)
[2024-11-08] MEDS: amLODIPine 5 MG Tab PO ONE (10:55)
[2024-11-08] MEDS: Losartan 50 MG Tab PO ONE (10:55)
[2024-11-08] MEDS: Metoprolol Succinate 50 MG Tab.ER PO SCH (10:56)
[2024-11-08] MEDS: Losartan 50 MG Tab PO SCH (20:02)
[2024-11-09] MEDS: amLODIPine 5 MG Tab PO SCH (08:20)
[2024-11-09] MEDS: Spironolactone 25 MG Tab PO SCH (11:17)
[2024-11-15] MEDS: Acetaminophen 325 MG Tab PO SCH (10:04)
[2024-11-16] MEDS: Melatonin 3 MG Tab PO SCH (01:11)
[2024-11-21] MEDS: Tuberculin, PPD 5 Units/0.1 ML 1 ML MDV IDERM ONE (19:21)
[2024-11-26 07:37] VITALS: BP 169/69
[2024-11-26 08:17] VITALS: PULSE 57
[2024-11-26] MEDS: Polyethylene Glycol 3350 Powder 17 GM Packet PO ONE (08:20)
== END 2024-11-26 11:00 | DRG 948 ==
LOC: LB.MS 13:36
PROVIDERS: ADMIT Surgery; ATTEND Surgery
DX: R53.81 Other malaise (principal); I10 Essential (primary) hypertension; I16.0 Hypertensive urgency; E78.00 Pure hypercholesterolemia, unspecified; H26.9 Unspecified cataract; E66.9 Obesity, unspecified; F15.90 Other stimulant use, unspecified, uncomplicated; G31.84 Mild cognitive impairment of uncertain or unknown etiology; Z79.1 Long term (current) use of non-steroidal anti-inflammatories (NSAID); Z79.899 Other long term (current) drug therapy; Z79.02 Long term (current) use of antithrombotics/antiplatelets; Z88.8 Allergy status to other drugs, medicaments and biological substances; Z87.81 Personal history of (healed) traumatic fracture; Z85.820 Personal history of malignant melanoma of skin; Z98.49 Cataract extraction status, unspecified eye; Z98.891 History of uterine scar from previous surgery; Z90.710 Acquired absence of both cervix and uterus; Z98.890 Other specified postprocedural states; Z68.26 Body mass index [BMI] 26.0-26.9, adult
CPT/HCPCS: 51798; 86580; 92507-GN; 96125-GN; 97110-GO; 97110-GP; 97116-GP; 97530-GO; 97530-GP; 97535-GO; 99305; 99308; 99315; A9270-GY; J1644

== ENCOUNTER 2025-01-26 19:06 | Inpatient (IN) | payer MEDICARE ==
[2025-01-26] MEDS: Atropine 0.4 MG/ML SDV IVPUSH SCH (19:24)
[2025-01-26] MEDS ORDERED: Sodium Chloride 0.9% 10 ML Syringe FLUSH PRN (19:25)
[2025-01-26] MEDS: Sodium Chloride 0.9% 1,000 ML IV SCH ×2 (19:25→22:40)
[2025-01-26 19:31] LABS: HEMATOCRIT 33.3 % (37.0-47.0); MEAN CORPUSCULAR HEMOGLOBIN 30.1 pg (27.0-32.0); MEAN PLATELET VOLUME 11.9 fL (6.0-10.0); RED BLOOD CELL COUNT 3.66 M/uL (3.80-5.80); RED CELL DISTRIBUTION WIDTH 16.7 % (11.0-16.0)
[2025-01-26] MEDS: Atropine 0.1 MG/ML 10 ML Syringe ONE (19:33)
[2025-01-26] MEDS: Glucagon,Human Recombinant 1 MG Vial IM ONE (19:33)
[2025-01-26] MEDS: Atropine 0.1 MG/ML 10 ML Syringe IVPUSH ONE (19:49)
[2025-01-26 19:57] LABS: CALCIUM 8.3 mg/dL (8.5-10.1); CARBON DIOXIDE,CO2 18.9 mmol/L (21.0-32.0); CHLORIDE,CL 99 mmol/L (98-107); CREATININE 2.26 mg/dL (0.55-1.02); EST CRCL DRUG DOSING (CG) 13.23 mL/min; ESTIMATED GFR 21 mL/min (>60); GLUCOSE RANDOM 298 mg/dL (74-100); MAGNESIUM 2.2 mg/dL (1.8-2.4); PHOSPHORUS 6.8 mg/dL (2.5-4.9); SODIUM,NA 131 mmol/L (136-145)
[2025-01-26 19:58] LABS: ANION GAP 19.8 mmol/L (5.0-15.0)
[2025-01-26 20:00] LABS: BLOOD UREA NITROGEN,BUN 52 mg/dL (8-26); POTASSIUM,K 6.7 mmol/L (3.5-5.1)
[2025-01-26] MEDS: Albuterol 0.083% 2.5 MG/3 ML Neb Soln NEB ONE (20:08)
[2025-01-26] MEDS ORDERED: 50% Dextrose in Water 50 ML Syringe IVPUSH PRN (20:13)
[2025-01-26] MEDS ORDERED: Glucagon,Human Recombinant 1 MG Vial IM PRN (20:13)
[2025-01-26] MEDS: Calcium Gluconate 10% 1 GM/10 ML SDV IV ONE (20:25)
[2025-01-26] MEDS: Sodium Bicarbonate 8.4% 50 MEQ/50 ML SDV IVPUSH ONE (20:32)
[2025-01-26] MEDS: Insulin Regular, Human 100 Units/ML 10 ML Vial IVPUSH ONE (20:51)
[2025-01-26 20:54] LABS: TROPONIN I HIGH SENSITIVITY < 4.0 pg/ml (<=60.4)
[2025-01-26] MEDS: cefTRIAXone 500 MG Vial IVPUSH ONE (21:11)
[2025-01-26 21:34] LABS: APPEARANCE,URINE CLEAR (CLEAR); COLOR,URINE YELLOW; PH,URINE 5.5 (5.0-8.0)
[2025-01-26 21:35] LABS: AMORPHOUS SEDIMENT,URINE FEW /HPF; BILIRUBIN,URINE NEGATIVE (NEGATIVE); GLUCOSE,URINE NEGATIVE (NEGATIVE); KETONES,URINE NEGATIVE (NEGATIVE); LEUKOCYTE ESTERASE,URINE NEGATIVE (NEGATIVE); MUCUS,URINE FEW /HPF; NITRITE,URINE NEGATIVE (NEGATIVE); OCCULT BLOOD,URINE NEGATIVE (NEGATIVE); PROTEIN,URINE 30 mg/dL (NEGATIVE); RBC,URINE NOT SEEN /HPF; SQUAMOUS EPITHELIAL CELLS,UR FEW /HPF; UROBILINOGEN,URINE 0.2 E.U./dL (0.2-1.0); WBC,URINE 0-5 /HPF
[2025-01-26] MEDS: Sodium Polystyrene Sulfonate 15 GM/60 ML Susp 60 ML Bot PO ONE (21:47)
[2025-01-26 23:16] LABS: ANION GAP 18.6 mmol/L (5.0-15.0); BUN/CREATININE RATIO 25.4 (6-25); CALCIUM 8.2 mg/dL (8.5-10.1); CREATININE 2.13 mg/dL (0.55-1.02); EST CRCL DRUG DOSING (CG) 14.04 mL/min; POTASSIUM,K 5.6 mmol/L (3.5-5.1)
[2025-01-27] MEDS: Furosemide 20 MG/2 ML VIAL IVPUSH ONE (02:24)
[2025-01-27] MEDS: Albuterol 0.083% 2.5 MG/3 ML Neb Soln NEB PRN (02:25)
[2025-01-27] MEDS ORDERED: Zinc Oxide 20% Oint 56.7 GM Tube TOP PRN (02:45)
[2025-01-27] MEDS ORDERED: Diltiazem 240 MG Cap.ER PO SCH (08:00)
[2025-01-27] MEDS ORDERED: Magnesium Oxide 400 MG Tab PO SCH (08:00)
[2025-01-27] MEDS ORDERED: amLODIPine 5 MG Tab PO SCH (08:00)
[2025-01-27] MEDS ORDERED: Hydrochlorothiazide 25 MG Tab PO SCH (08:00)
[2025-01-27] MEDS ORDERED: Losartan 50 MG Tab PO SCH (08:00)
[2025-01-27] MEDS ORDERED: Pantoprazole 40 MG Tab.CR PO SCH (08:00)
[2025-01-27] MEDS ORDERED: Non-Formulary Medication 1 Each (Magnesium Oxide [Magnesium Oxide] 400 MG Tablet) PO SCH (08:00)
[2025-01-27] MEDS ORDERED: DILTIAZEM HCL 240 MG PO SCH (08:00)
[2025-01-27 08:22] LABS: HEMATOCRIT 32.7 % (37.0-47.0); HEMOGLOBIN 10.4 g/dL (11.5-16.5); MEAN CORPUSCULAR HEMOGLOBIN 28.4 pg (27.0-32.0); MEAN CORPUSCULAR HGB CONC 31.8 g/dL (31.0-35.0); MEAN PLATELET VOLUME 11.7 fL (6.0-10.0); RED BLOOD CELL COUNT 3.66 M/uL (3.80-5.80); RED CELL DISTRIBUTION WIDTH 16.6 % (11.0-16.0); WHITE BLOOD CELL COUNT,WBC 16.4 K/uL (4.0-11.0)
[2025-01-27 08:37] LABS: ANION GAP 19.2 mmol/L (5.0-15.0); BUN/CREATININE RATIO 27.5 (6-25); CALCIUM 8.1 mg/dL (8.5-10.1); CARBON DIOXIDE,CO2 20.1 mmol/L (21.0-32.0); CREATININE 1.82 mg/dL (0.55-1.02); EST CRCL DRUG DOSING (CG) 16.43 mL/min; POTASSIUM,K 4.3 mmol/L (3.5-5.1)
[2025-01-27] MEDS: Diltiazem 240 MG Cap.ER PO SCH (10:32)
[2025-01-27] MEDS: Acetaminophen 500 MG Tab PO PRN (10:32)
[2025-01-27] MEDS: Losartan 50 MG Tab PO SCH (10:32)
[2025-01-27] MEDS: Hydrochlorothiazide 25 MG Tab PO SCH (10:32)
[2025-01-27] MEDS: cefTRIAXone 2 GM in Sodium Chloride 0.9% 100 ML IV SCH (10:33)
[2025-01-27] MEDS: Fluticasone NASAL Spray 16 GM Bottle NASBOTH SCH (16:29)
[2025-01-27] MEDS ORDERED: Albuterol 0.083% 2.5 MG/3 ML Neb Soln NEB PRN (18:08)
[2025-01-27] MEDS: Metoprolol Succinate 25 MG Tab.ER PO SCH (18:17)
[2025-01-27] MEDS: Enoxaparin 30 MG/0.3 ML Syringe SUBCUT SCH (19:50)
[2025-01-27] MEDS: Melatonin 3 MG Tab PO SCH (19:50)
[2025-01-27] MEDS: amLODIPine 10 MG Tab PO SCH (19:51)
[2025-01-27] MEDS: Pantoprazole 40 MG Tab.CR PO SCH (19:51)
[2025-01-27] MEDS ORDERED: Melatonin 3 MG Tab PO SCH (20:00)
[2025-01-28 08:57] LABS: HEMATOCRIT 33.8 % (37.0-47.0); HEMOGLOBIN 10.8 g/dL (11.5-16.5); MEAN CORPUSCULAR HEMOGLOBIN 28.8 pg (27.0-32.0); MEAN PLATELET VOLUME 11.9 fL (6.0-10.0); RED BLOOD CELL COUNT 3.75 M/uL (3.80-5.80); RED CELL DISTRIBUTION WIDTH 16.9 % (11.0-16.0); WHITE BLOOD CELL COUNT,WBC 12.2 K/uL (4.0-11.0)
[2025-01-28 09:17] LABS: ANION GAP 15.2 mmol/L (5.0-15.0); BUN/CREATININE RATIO 19.9 (6-25); CALCIUM 8.7 mg/dL (8.5-10.1); CARBON DIOXIDE,CO2 27.6 mmol/L (21.0-32.0); CREATININE 1.61 mg/dL (0.55-1.02); EST CRCL DRUG DOSING (CG) 18.58 mL/min; PHOSPHORUS 4.7 mg/dL (2.5-4.9); POTASSIUM,K 3.8 mmol/L (3.5-5.1)
[2025-01-29 09:40] LABS: HEMATOCRIT 31.8 % (37.0-47.0); HEMOGLOBIN 9.9 g/dL (11.5-16.5); MEAN CORPUSCULAR HEMOGLOBIN 28.4 pg (27.0-32.0); MEAN CORPUSCULAR HGB CONC 31.1 g/dL (31.0-35.0); MEAN PLATELET VOLUME 11.4 fL (6.0-10.0); RED BLOOD CELL COUNT 3.48 M/uL (3.80-5.80); RED CELL DISTRIBUTION WIDTH 16.7 % (11.0-16.0); WHITE BLOOD CELL COUNT,WBC 10.6 K/uL (4.0-11.0)
[2025-01-29] MEDS: Albuterol 0.083% 2.5 MG/3 ML Neb Soln NEB PRN (10:10)
[2025-01-29 10:15] LABS: ANION GAP 15.2 mmol/L (5.0-15.0); BUN/CREATININE RATIO 20.6 (6-25); CALCIUM 8.6 mg/dL (8.5-10.1); CARBON DIOXIDE,CO2 23.5 mmol/L (21.0-32.0); CREATININE 1.55 mg/dL (0.55-1.02); EST CRCL DRUG DOSING (CG) 19.3 mL/min; POTASSIUM,K 3.7 mmol/L (3.5-5.1)
[2025-01-29] MEDS ORDERED: cefTRIAXone 2 GM in Sodium Chloride 0.9% 100 ML IV SCH (10:15)
[2025-01-29] MEDS: cefTRIAXone 2 GM in Sodium Chloride 0.9% 100 ML IV SCH (10:15)
[2025-01-29] MEDS ORDERED: Lactobacillus Acidophilus/Lactobacillus Sporogenes (Probiotic) Tab PO SCH (10:30)
[2025-01-29] MEDS: Lactobacillus Acidophilus/Lactobacillus Sporogenes (Probiotic) Tab PO SCH (19:29)
[2025-01-30] MEDS ORDERED: Albuterol 0.083% 2.5 MG/3 ML Neb Soln NEB SCH (16:30)
[2025-01-30] MEDS: Albuterol 0.083% 2.5 MG/3 ML Neb Soln NEB SCH (19:20)
[2025-01-30] MEDS: Levofloxacin 500 MG Tab PO SCH (19:30)
[2025-01-31 14:25] VITALS: BP 153/65; PULSE 65
== END 2025-01-31 14:00 | DRG 194 ==
LOC: LB.ED 19:06 → LB.MS 22:33
PROVIDERS: ADMIT Surgery; ATTEND Surgery
DX: R00.1 Bradycardia, unspecified (principal); J18.9 Pneumonia, unspecified organism; E87.6 Hypokalemia; N17.9 Acute kidney failure, unspecified; E87.5 Hyperkalemia; Z68.29 Body mass index [BMI] 29.0-29.9, adult; Z66 Do not resuscitate; Z91.048 Other nonmedicinal substance allergy status; E78.00 Pure hypercholesterolemia, unspecified; I10 Essential (primary) hypertension; E66.9 Obesity, unspecified; Z88.8 Allergy status to other drugs, medicaments and biological substances; Z98.891 History of uterine scar from previous surgery; Z79.899 Other long term (current) drug therapy; Z98.49 Cataract extraction status, unspecified eye; Z90.710 Acquired absence of both cervix and uterus; Z85.828 Personal history of other malignant neoplasm of skin
CPT/HCPCS: 36415; 51702; 70450; 71045; 80048; 81001; 82947; 83605; 83735; 84100; 84132; 84484; 85027; 87040; 93005; 93010; 94640; 96361; 96365; 96372; 96375; 97161-GP; 97165-GO; 97530-GP; 99222; 99232; 99238; 99285-25; A9270-GY; J0461; J0612; J0696; J1610; J1650; J1938; J3490; J7030

== ENCOUNTER 2025-02-09 13:52 | Inpatient (IN) | payer MEDICARE ==
[2025-02-09] MEDS: Furosemide 40 MG/4 ML VIAL IVPUSH ONE (14:28)
[2025-02-09 14:58] LABS: BASOPHILS ABSOLUTE AUTO 0.03 K/uL (0.02-0.10); BASOPHILS PERCENT AUTO 0.3 % (0.0-0.5); EOSINOPHILS ABSOLUTE AUTO 0.12 K/uL (0.04-0.40); EOSINOPHILS PERCENT AUTO 1.1 % (1.0-5.0); HEMATOCRIT 32.3 % (37.0-47.0); HEMOGLOBIN 10.2 g/dL (11.5-16.5); LYMPHOCYTES PERCENT AUTO 13.9 % (20.0-40.0); MEAN CORPUSCULAR HEMOGLOBIN 28.8 pg (27.0-32.0); MEAN CORPUSCULAR HGB CONC 31.6 g/dL (31.0-35.0); MEAN CORPUSCULAR VOLUME 91 fL (76-96); MEAN PLATELET VOLUME 11.3 fL (6.0-10.0); MONOCYTES ABSOLUTE AUTO 1.06 K/uL (0.20-0.80); MONOCYTES PERCENT AUTO 9.8 % (3.0-10.0); NEUTROPHILS ABSOLUTE AUTO 8.06 K/uL (2.00-7.50); NEUTROPHILS PERCENT AUTO 74.9 % (45.0-70.0); PLATELET COUNT,PLT 350 K/uL (150-500); RED BLOOD CELL COUNT 3.54 M/uL (3.80-5.80); WHITE BLOOD CELL COUNT,WBC 10.8 K/uL (4.0-11.0)
[2025-02-09 15:21] LABS: A/G RATIO 0.6 (0.8-2.0); ANION GAP 17.1 mmol/L (5.0-15.0); BILIRUBIN TOTAL 0.3 mg/dL (0.0-1.0); BUN/CREATININE RATIO 30.4 (6-25); CALCIUM 8.2 mg/dL (8.5-10.1); CARBON DIOXIDE,CO2 21.4 mmol/L (21.0-32.0); CREATININE 1.68 mg/dL (0.55-1.02); EST CRCL DRUG DOSING (CG) 16.95 mL/min; POTASSIUM,K 5.5 mmol/L (3.5-5.1); PROTEIN TOTAL,TP 7.8 g/dL (6.4-8.2); TROPONIN I HIGH SENSITIVITY 10.4 pg/ml (<=60.4)
[2025-02-09 15:56] LABS: APPEARANCE,URINE CLEAR (CLEAR); BILIRUBIN,URINE NEGATIVE (NEGATIVE); COLOR,URINE YELLOW; GLUCOSE,URINE NEGATIVE (NEGATIVE); KETONES,URINE NEGATIVE (NEGATIVE); LEUKOCYTE ESTERASE,URINE NEGATIVE (NEGATIVE); NITRITE,URINE NEGATIVE (NEGATIVE); OCCULT BLOOD,URINE NEGATIVE (NEGATIVE); PH,URINE 5.5 (5.0-8.0); PROTEIN,URINE NEGATIVE (NEGATIVE); UROBILINOGEN,URINE 0.2 E.U./dL (0.2-1.0)
[2025-02-09] MEDS ORDERED: Levofloxacin/Dextrose 5%-Water 500 MG in Levofloxacin/Dextrose 5%-Water 100 ML IV ONE (17:11)
[2025-02-09] MEDS ORDERED: Levofloxacin/Dextrose 5%-Water 750 MG in Levofloxacin/Dextrose 5%-Water 150 ML IV ONE (18:45)
[2025-02-09] MEDS ORDERED: Nystatin Topical Powder 15 GM Bottle TOP PRN (19:27)
[2025-02-09] MEDS ORDERED: Non-Formulary Medication 1 Each (Loperamide Hcl [Imodium A-D] 2 MG Tablet) PO SCH (19:30)
[2025-02-09] MEDS: Furosemide 40 MG/4 ML VIAL IVPUSH SCH (19:46)
[2025-02-09] MEDS: Losartan 50 MG Tab PO SCH (19:48)
[2025-02-09] MEDS: Melatonin 3 MG Tab PO SCH (19:49)
[2025-02-09] MEDS: Acetaminophen 325 MG Tab PO SCH (19:49)
[2025-02-09] MEDS: Metoprolol Succinate 25 MG Tab.ER PO SCH (19:49)
[2025-02-09] MEDS: Levofloxacin/Dextrose 5%-Water 150 ML IV ONE (20:08)
[2025-02-09] MEDS: Non-Formulary Medication 1 Each (Lactobacillus Acidophilus [Acidophilus] 1 EACH Capsule) PO SCH (20:35)
[2025-02-09] MEDS: Albuterol/Ipratropium 3.0-0.5 MG/3 ML Neb Soln NEB SCH (21:46)
[2025-02-09] MEDS: LORazepam 2 MG/ML SDV IVPUSH PRN (23:00)
[2025-02-09] MEDS: Sodium Chloride 0.9% 500 ML IV ONE ×2 (23:04→23:29)
[2025-02-09] MEDS: Atropine 0.4 MG/ML SDV IVPUSH SCH (23:14)
[2025-02-09] MEDS: DOPamine/Dextrose 5%-Water 400 MG/250 ML BAG IV SCH (23:25)
[2025-02-10] MEDS: Sodium Chloride 0.9% 500 ML IV ONE (03:55)
[2025-02-10] MEDS ORDERED: Non-Formulary Medication 1 Each (Magnesium Oxide [Magnesium Oxide] 400 MG Tablet) PO SCH (08:00)
[2025-02-10] MEDS: Magnesium Oxide 400 MG Tab PO SCH (08:34)
[2025-02-10] MEDS: Pantoprazole 40 MG Tab.CR PO SCH (08:35)
[2025-02-10] MEDS: Multivitamin Tab PO SCH (08:35)
[2025-02-10] MEDS: Lactobacillus Acidophilus/Lactobacillus Sporogenes (Probiotic) Tab PO SCH (08:35)
[2025-02-10] MEDS: amLODIPine 5 MG Tab PO SCH (08:37)
[2025-02-10 09:21] LABS: BASOPHILS ABSOLUTE AUTO 0.04 K/uL (0.02-0.10); BASOPHILS PERCENT AUTO 0.2 % (0.0-0.5); EOSINOPHILS ABSOLUTE AUTO 0.09 K/uL (0.04-0.40); EOSINOPHILS PERCENT AUTO 0.5 % (1.0-5.0); HEMATOCRIT 33.6 % (37.0-47.0); HEMOGLOBIN 10.6 g/dL (11.5-16.5); LYMPHOCYTES ABSOLUTE AUTO 1.31 K/uL (1.50-4.00); LYMPHOCYTES PERCENT AUTO 6.7 % (20.0-40.0); MEAN CORPUSCULAR HEMOGLOBIN 27.9 pg (27.0-32.0); MEAN CORPUSCULAR HGB CONC 31.5 g/dL (31.0-35.0); MEAN CORPUSCULAR VOLUME 88 fL (76-96); MEAN PLATELET VOLUME 11.9 fL (6.0-10.0); MONOCYTES ABSOLUTE AUTO 2.22 K/uL (0.20-0.80); MONOCYTES PERCENT AUTO 11.3 % (3.0-10.0); NEUTROPHILS PERCENT AUTO 81.3 % (45.0-70.0); PLATELET COUNT,PLT 378 K/uL (150-500); RED CELL DISTRIBUTION WIDTH 15.9 % (11.0-16.0); WHITE BLOOD CELL COUNT,WBC 19.7 K/uL (4.0-11.0)
[2025-02-10 09:39] LABS: ANION GAP 17.7 mmol/L (5.0-15.0); BUN/CREATININE RATIO 32.1 (6-25); CALCIUM 8.3 mg/dL (8.5-10.1); CARBON DIOXIDE,CO2 20.7 mmol/L (21.0-32.0); CREATININE 2.09 mg/dL (0.55-1.02); EST CRCL DRUG DOSING (CG) 13.62 mL/min
[2025-02-10 09:44] LABS: POTASSIUM,K 7.4 mmol/L (3.5-5.1)
[2025-02-10] MEDS ORDERED: 50% Dextrose in Water 50 ML Syringe IVPUSH PRN ×5 (09:55→22:31)
[2025-02-10] MEDS ORDERED: Glucagon,Human Recombinant 1 MG Vial IM PRN ×5 (09:55→22:31)
[2025-02-10] MEDS ORDERED: Sodium Chloride 23.4% 77 MEQ in Dextrose 10% in Water 500 ML IV SCH (10:00)
[2025-02-10] MEDS: Sodium Polystyrene Sulfonate 15 GM/60 ML Susp 60 ML Bot PO ONE (10:17)
[2025-02-10] MEDS: Insulin Regular, Human 100 Units/ML 10 ML Vial IV ONE ×2 (10:26→22:42)
[2025-02-10] MEDS: Dextrose 5%-0.9% NaCl 1,000 ML IV SCH ×2 (10:37→14:21)
[2025-02-10 13:38] LABS: BUN/CREATININE RATIO 29.7 (6-25); CALCIUM 8.4 mg/dL (8.5-10.1); CARBON DIOXIDE,CO2 18.3 mmol/L (21.0-32.0); CREATININE 2.29 mg/dL (0.55-1.02); EST CRCL DRUG DOSING (CG) 12.43 mL/min
[2025-02-10 13:42] LABS: ANION GAP 21.6 mmol/L (5.0-15.0); POTASSIUM,K 6.9 mmol/L (3.5-5.1)
[2025-02-10] MEDS: Insulin Regular, Human 100 Units/ML 10 ML Vial SUBCUT ONE ×3 (14:24→19:48)
[2025-02-10] MEDS: Sodium Polystyrene Sulfonate 15 GM/60 ML Susp 60 ML Bot PO SCH (14:38)
[2025-02-10] MEDS: Furosemide 40 MG/4 ML VIAL IVPUSH ONE ×2 (18:02→22:43)
[2025-02-10 20:23] LABS: BUN/CREATININE RATIO 30.3 (6-25); CALCIUM 7.9 mg/dL (8.5-10.1); CREATININE 2.18 mg/dL (0.55-1.02); EST CRCL DRUG DOSING (CG) 13.06 mL/min
[2025-02-10 20:28] LABS: ANION GAP 19.4 mmol/L (5.0-15.0); POTASSIUM,K 4.4 mmol/L (3.5-5.1)
[2025-02-10] MEDS: Zinc Oxide 20% Oint 56.7 GM Tube TOP PRN (21:25)
[2025-02-11] MEDS: Albuterol/Ipratropium 3.0-0.5 MG/3 ML Neb Soln NEB SCH (02:38)
[2025-02-11] MEDS: Albuterol/Ipratropium 3.0-0.5 MG/3 ML Neb Soln ONE (02:40)
[2025-02-11] MEDS: Morphine 2 MG/ML SYRINGE IVPUSH PRN (05:54)
[2025-02-11] MEDS: Furosemide 20 MG/2 ML VIAL IVPUSH ONE (05:56)
[2025-02-11] MEDS: cefTRIAXone 1 GM in Sodium Chloride 0.9% 50 ML IV ONE (07:25)
[2025-02-11] MEDS ORDERED: Morphine Solution 10 MG/5 ML ML 100 ML Bottle PO PRN (08:48)
[2025-02-11 08:49] LABS: ANION GAP 13.7 mmol/L (5.0-15.0); BUN/CREATININE RATIO 28.3 (6-25); CALCIUM 7.7 mg/dL (8.5-10.1); CARBON DIOXIDE,CO2 24.4 mmol/L (21.0-32.0); CREATININE 1.91 mg/dL (0.55-1.02); EST CRCL DRUG DOSING (CG) 14.9 mL/min; POTASSIUM,K 3.1 mmol/L (3.5-5.1)
[2025-02-11 16:40] VITALS: BP 146/66
[2025-02-11] MEDS ORDERED: Levofloxacin/Dextrose 5%-Water 100 ML IV SCH (19:00)
[2025-02-11] MEDS ORDERED: Levofloxacin/Dextrose 5%-Water 500 MG in Levofloxacin/Dextrose 5%-Water 100 ML IV SCH (19:00)
[2025-02-11] MEDS: Morphine Oral Concentrate 20 MG/ML 30 ML Bottle PO PRN (19:05)
[2025-02-11] MEDS: Loperamide 2 MG Cap PO SCH (20:29)
[2025-02-12] MEDS: Atropine 1% Ophth Soln 5 ML Bottle SL PRN ×2 (00:34→10:34)
[2025-02-12] MEDS ORDERED: Atropine 1% Ophth Soln 5 ML Bottle SL PRN (09:33)
[2025-02-12] MEDS: cefTRIAXone 1 GM Vial IM SCH (10:16)
[2025-02-12] MEDS: Sodium Chloride 0.9% Inhalation Soln 3 ML Neb INH PRN (12:19)
[2025-02-12 23:00] VITALS: PULSE 104
[2025-02-13 22:21] LABS: STREPTOCOCCUS PNEUMONIAE AG,UR Negative (Negative)
[2025-02-13 22:29] LABS: LEGIONELLA PNEUMOPHILA AG,URN Negative (Negative)
== END 2025-02-13 03:04 | disposition expired | DRG 871 ==
LOC: LB.ED 13:52 → LB.MS 16:58
PROVIDERS: ADMIT Emergency Medicine; ATTEND Emergency Medicine
PROC: 3E03329 Introduction of Other Anti-infective into Peripheral Vein, Percutaneous Approach (ICD-10-PCS; principal; 2025-02-09)
PROC: 0T9B70Z Drainage of Bladder with Drainage Device, Via Natural or Artificial Opening (ICD-10-PCS; 2025-02-11)
DX: A41.9 Sepsis, unspecified organism (principal); J18.9 Pneumonia, unspecified organism; J96.01 Acute respiratory failure with hypoxia; R65.21 Severe sepsis with septic shock; I13.0 Hypertensive heart and chronic kidney disease with heart failure and stage 1 through stage 4 chronic kidney disease, or unspecified chronic kidney disease; N17.9 Acute kidney failure, unspecified; I48.20 Chronic atrial fibrillation, unspecified; N18.4 Chronic kidney disease, stage 4 (severe); Z66 Do not resuscitate; Z51.5 Encounter for palliative care; R13.10 Dysphagia, unspecified; I11.0 Hypertensive heart disease with heart failure; G51.0 Bell's palsy; E87.6 Hypokalemia; I50.9 Heart failure, unspecified; R00.1 Bradycardia, unspecified; E87.5 Hyperkalemia; E78.00 Pure hypercholesterolemia, unspecified; E66.9 Obesity, unspecified; Z88.8 Allergy status to other drugs, medicaments and biological substances; Z98.49 Cataract extraction status, unspecified eye; Z79.899 Other long term (current) drug therapy; Z85.820 Personal history of malignant melanoma of skin; Z98.891 History of uterine scar from previous surgery; Z90.710 Acquired absence of both cervix and uterus; Z68.35 Body mass index [BMI] 35.0-35.9, adult
CPT/HCPCS: 36415; 51702; 71045; 71250; 74176; 80048; 80053; 81003; 82947; 83605; 83735; 83880; 84484; 85025; 87040; 87449; 87899; 93005; 93010; 94640; 96374; 99222; 99233; 99238; 99285-25; A9270-GY; J0461; J0696; J1265; J1938; J1956; J2060; J2270; J7040